=== PATIENT | male | born 1935 | race Caucasian/White ===

== ENCOUNTER 2024-02-14 18:52 | Inpatient (IN) | payer MEDICARE, SELFPAY ==
[2024-02-12] VITALS (7 sets, daily range): BP systolic 119–154; BP diastolic 59–83; PULSE 63–70; BMI 24.6
[2024-02-12 14:23] LABS: Glucose - Point of Care 154 mg/dl (70-99)
[2024-02-12 15:51] LABS: % Basophils 0.7 % (0-2); % Eosinophils 1.7 % (0-6); % Immature Granulocytes 0.2 % (0-0.5); % Lymphocytes 17.9 % (20.5-51.1); % Monocytes 6.9 % (1.7-9.3); % Neutrophils 72.6 % (42.2-75.2); Absolute Eosinophils 0.1 10^3/uL (0-0.7); Absolute Monocytes 0.4 10^3/uL (0.1-0.6); Absolute Neutrophils 4.2 10^3/uL (1.4-6.5); Hematocrit 37.2 % (39.0-52.0); Hemoglobin 11.9 g/dL (13.0-18.0); Mean Corpuscular Hgb 31.1 pg (27.0-31.0); Mean Corpuscular Volume 97.1 fL (80.0-94.0); Mean Platelet Volume 10.2 fL (7.4-10.4); Nucleated Red Blood Cells % 0 % (-); Platelet Count 138 10^3/uL (130-400); Red Blood Cell Count 3.83 10^6/uL (4.70-6.10); Red Cell Dist. Width 13.2 % (11.5-14.5); White Blood Cell Count 5.8 10^3/uL (4.8-10.8)
[2024-02-12 16:00] LABS: PT 18.2 Sec (11.4-14.6)
[2024-02-12 16:01] LABS: APTT 33.7 Sec (23.4-35.0)
[2024-02-12 16:03] LABS: ALT (SGPT) 12 U/L (0-50); AST (SGOT) 23 U/L (17-59); Albumin 4.4 g/dl (3.5-5.0); Alkaline Phosphatase 57 U/L (38-126); Blood Urea Nitrogen 25 mg/dl (9-20); Calcium 10.3 mg/dl (8.4-10.2); Carbon Dioxide 27 mmol/L (22-30); Chloride 102 mmol/L (98-107); Glucose 123 mg/dl (70-99); Potassium 5.1 mmol/L (3.5-5.1); Sodium 135 mmol/L (135-145); Total Bilirubin 0.5 mg/dl (0.2-1.3); eGFR 35.54
--- NOTE | 2024-02-12 16:33 | ED.CVA ---
History of Present Illness
General
Chief Complaint: CVA/TIA Symptoms
Source: patient and family (daughter)
Exam Limitations: none
Time Seen by Provider: 02/12/24 16:04
Nursing documentation reviewed up to this point in time: agreed with
Onset of Stroke Symptoms
Onset of symptoms known: No
Time pt last seen normal is known: No
Travel History
Have you had any contact with someone who has COVID-19?: No
Do you have any symptoms of coronavirus? Fever > 100 degrees, chills, cough, shortness of breath, sore throat, loss of taste or smell, muscle aches, or headache?: No
History of Present Illness
History of Present Illness:
The patient is an 89-year-old man brought in by his daughter, with whom he lives with, for generalized weakness and inability to walk. His daughter reports that he has decompensated over the last 2 to 3 days. She denies fever. She reports that he
does not have slurred speech, however, his voice seems much more quiet than usual. She reports he is generally up walking around and conversational. Patient has no complaints and is a poor historian. She denies any recent falls. She denies
vomiting and diarrhea. Daughter also also reports confusion over the last few days, saying things that do not make sense
Past History
Past History
ED Past Medical History: Arrthythmia (Afib), CAD, Hypercholesterolemia, NIDDM, Psychiatric and Other (glaucoma, bipolar)
ED Past Surgical History: Cardiac (stenting)
Social History
Tobacco: Non-smoker
Alcohol: None
Drug: None
Personal:
Living: with family
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
Family History
Family History: Other (reviewed and non-contributory)
Review of Systems
Review of Systems
Allergies reviewed?: Yes
Other source history: family
All Other Systems: ROS reviewed and negative except as documented in HPI and ROS
Constitutional: Reports fatigue
EENT: Reports no symptoms
Respiratory: Reports no symptoms
Cardiac: Reports no symptoms
ABD/GI: Reports anorexia
: Reports no symptoms
Musculoskeletal: Reports no symptoms
Skin: Reports no symptoms
Neurological: Reports no symptoms
Endocrine: Reports no symptoms
Hematologic/Lymphatic: Reports no symptoms
Psychiatric: Reports no symptoms
Phy Exam
Physical Exam
Physical Exam:
Physical Exam
General: No acute distress. Patient appears tired and less interactive
Neck: supple. no meningeal signs. normal psoterior pharynx
Heart: s1/s2 regular rate and rhythm, no murmur. equal radial pulses.
Lungs: no acute respiratory distress. clear bilaterally
Abdomen: normal bowel sounds. not tender. no CVAT
Neuro: alert and orientedx2. no focal neurological deficits, flat affect
Skin: no rash
Psychiatric: well kept. interactive and cooperative
Extremities: no edema. no calf tenderness. negative homans. good distal pulses
Course
Orders/Labs/Results
Orders:
Orders
02/12/24 14:27
Electrocardiogram (*1) Urgent
Reason for Study: Other
Other Reason for Exam: Possible Stroke
02/12/24 14:28
CT Head W/o Iv Contrast Urgent
Comment:
Reason For Exam: speech disturbance
EKG- Treatment ONCE
02/12/24 15:42
Complete Blood Count/With Diff Urgent
Comprehensive Metabolic Panel Urgent
PTT Urgent
Prothrombin Time Urgent
02/12/24 17:02
CR Chest - 2 Views Urgent
Comment:
Reason For Exam: weakness
02/12/24 17:11
Alcohol Urgent
Ammonia Urgent
COVID-19 Antigen Urgent
Source: Nasal Swab
Troponin I Urgent
Influenza A+B Rapid Molecular Urgent
LANA Source: Nasal Swab
Specimen Description:
02/12/24 18:35
Urinalysis Reflex To Culture Urgent
Date Specimen was Collected: 02/12/24
Time Specimen was Collected: 18:33
0.9% Sodium Chloride 1000 ml [Nss] 1,000 ml IV BOLUS
Abnormal Lab Results
02/12/24 02/12/24 02/12/24
14:21 15:42 17:11
RBC 3.83 L 10^6/uL
(4.70-6.10)
Hgb 11.9 L g/dL
(13.0-18.0)
Hct 37.2 L %
(39.0-52.0)
MCV 97.1 H fL
(80.0-94.0)
MCH 31.1 H pg
(27.0-31.0)
MCHC 32.0 L g/dL
(33.0-37.0)
Absolute Lymphs (auto) 1.0 L 10^3/uL
(1.2-3.4)
Lymphocytes % 17.9 L %
(20.5-51.1)
PT 18.2 H Sec
(11.4-14.6)
BUN 25 H mg/dl
(9-20)
Creatinine 1.8 H mg/dL
(0.7-1.3)
Glucose 123 H mg/dl
(70-99)
Calcium 10.3 H mg/dl
(8.4-10.2)
Ammonia < 9 L umol/L
(9-30)
POC Glucose 154 H mg/dl
(70-99)
02/12/24 15:42
02/12/24 15:42
Vital Signs
Initial and Last Documented VS:
Initial Vital Signs
Temp Pulse Resp BP Pulse Ox
98.4 F 70 16 119/67 98
04/09/24 14:23 02/12/24 14:23 02/12/24 14:23 02/12/24 14:23 02/12/24 14:23
Last Documented Vital Signs
Temp Pulse Resp BP Pulse Ox
98.4 F 61 12 129/59 96
02/12/24 14:23 02/12/24 19:00 02/12/24 19:00 02/12/24 19:00 02/12/24 19:02
MDM/Problems Addressed
Differential Diagnosis Includes:
Acute UTI, intracranial hemorrhage, hyponatremia, acute dehydration
MDM/Problems Addressed:
Patient presents with acute generalized fatigue, weakness and inability to walk
*Radiology
Radiology exam reviewed: preliminary read by ED provider (Chest x-ray reviewed by me. No acute disease) and radiology read reviewed
*Pulse Oximetry
Patient hypoxic: no
*Circulation Sales Representative Interpretation
Rate: normal
Interpretation: normal
Rhythm: sinus
*Critical Care Note
Total Time (30-74mins, 75-104mins- exclusive of procedures): Not Applicable
Data Reviewed
Review of Other/Old Records Reveals: Discharge Summary (Discharge summary reviewed from 05/2022 when patient was admitted for ambulatory dysfunction and later found to be COVID-positive)
Source: patient and family
Patient Management
Discussion with other providers: Hospitalist
ED Attending Note
-
Portions of this chart may have been created with voice recognition software.� Occasional wrong word or��sound alike� substitutions may have occurred due to the inherent limitations of voice recognition software.
Discharge Plan
Departure
Patient Disposition: Admit
Date of Disposition: 02/12/24
Time of Disposition: 19:02
Presentation/result/management discussed w/ accepting MD/DO: Hospitalist
Patient with high blood pressure during this ER visit?: No
Condition: Good
Covid-19: Negative COVID-19
Discharge Problem:
Ambulatory dysfunction, Weakness
Prescriptions:
No Action
aspirin 81 MG tablet,delayed release (DR/EC)
81 mg PO DAILY
multivitamin with folic acid [Tab-A-Mariaelena] 1 TABLET tablet
1 tab PO MOWEFR
divalproex 500 MG tablet extended release 24 hr
500 mg PO BID
amiodarone [Pacerone] 200 MG tablet
200 mg PO DAILY
Eliquis 2.5 MG tablet
2.5 mg PO BID Qty: 30 0RF
sennosides [senna] 1 TABLET tablet
1 tab PO HS PRN (Reason: Constipation)
polyethylene glycol 3350 17 GRAMS powder in packet
17 grams PO DAILY
levothyroxine 25 mcg Tablet
25 mcg PO DAILY AT 0700
lithium carbonate 300 mg Tablet
300 mg PO HS
cholecalciferol (vitamin D3) 25 mcg (1,000 unit) Capsule
25 mcg PO DAILY
solifenacin 10 mg Tablet
10 mg PO DAILY
rosuvastatin 10 mg Tablet
10 mg PO QPM Qty: 1 0RF
docusate sodium 100 MG capsule
100 mg PO BID PRN (Reason: constipation)
Refresh Classic (PF) 10 DROPS dropperette
1 drops BOTH EYES QIDPRN PRN (Reason: dry eyes )
Interventions
Interventions:
*Risk Screen - Suicide Last Done: 02/12/24 14:23
*General Assessment Last Done: 02/12/24 14:23
*Neglect/Abuse Screening Last Done: 02/12/24 14:23
ED- Fall Risk Assessment Last Done: 02/12/24 14:23
*ED COVID-19 Vaccine History Last Done: 02/12/24 17:22
ED- Pulmonary Assessment Last Done: 02/12/24 19:02
ED- Neurological Assessment Last Done: 02/12/24 14:23
ED- Cardiac Assessment Last Done: 02/12/24 19:02
Discharge Date and Time
Print Language: CAP[place]
[2024-02-12 17:38] LABS: Ammonia < 9 umol/L (9-30)
[2024-02-12 17:41] LABS: COVID-19 Antigen Negative (Negative)
[2024-02-12 17:55] LABS: Alcohol None Detected
[2024-02-12 18:44] LABS: Urine Albumin Negative (Neg - Trace); Urine Bilirubin Negative (Negative); Urine Character Slightly Cloudy (Clear); Urine Color Yellow; Urine Glucose Negative (Negative); Urine Ketone Negative (Negative); Urine Leukocyte Negative (Negative); Urine Nitrite Negative (Negative); Urine Occult Blood Negative (Negative); Urine Urobilinogen Negative (Neg - 1+)
[2024-02-12] MEDS: NSS 1000 IV ×2 (18:52→22:52)
--- NOTE | 2024-02-12 19:43 | HPS.HSE ---
Family Physician
-
Family Physician: Hermila Solis
Chief Complaint
-
Weakness
History of Present Illness
Patient is an 89y M with PMH significant for ASCVD, bipolar disorder and CKD who presents to ED for evaluation of weakness and confusion. History obtained from patient and his daughter at the bedside. Daughter notes that patient has seemed
weaker and more confused for the past 3-4 days or so. She has noted that his voice seems lower / softer, he has had increased ataxia / difficulty walking despite regular use of a walker and he has seemed more confused / disoriented. There have
been no specific / focal complaints or concerns. No noted cough, chest pain, N/V/D, urinary complaints, etc.
No recent medication changes or adjustments.
No known sick contacts.
Medical History
Past Medical History
Past Medical History: Reports Other
Additional Past Medical History:
ASCVD
Hypertension
Paroxysmal Atrial Fibrillation
DM-II
CKD III
Bipolar Disorder
Sensorineural Hearing Loss
Past Surgical History: Reports Other
Additional Past Surgical History:
PTCA with Stent
PPM / AICD Placement
T&A
Social History
Tobacco: Non-smoker
Alcohol: None
Drug: None
Living: With Family (Daughter)
Family History
Family History: Not pertinent
Allergies / Home Medications
Allergies reflects when Allergies were last updated in [facility].
Home Medications with original date entered in [facility]
Allergy/Medication List:
Allergies
Allergy/AdvReac Type Severity Reaction Status Date / Time
No Known Allergies Allergy Verified 02/02/23 15:27
Home Medications
aspirin 81 mg tablet,delayed release 81 mg PO DAILY Blood clot prevention/tx 12/16/14
multivitamin with folic acid 400 mcg tablet (Tab-A-Mariaelena) 1 tab PO MOWEFR Supplement 12/16/14
amiodarone 200 mg tablet (Pacerone) 200 mg PO DAILY Arrhythmia 02/22/16
divalproex 500 mg tablet,extended release 24 hr 500 mg PO BID Mental health 02/22/16
apixaban 2.5 mg tablet (Eliquis) 2.5 mg PO BID ##30 02/25/16
polyethylene glycol 3350 17 gram oral powder packet 17 grams PO DAILY Constipation 02/28/22
sennosides 8.6 mg tablet (senna) 1 tab PO HS PRN Constipation 02/28/22
cholecalciferol (vitamin D3) 25 mcg (1,000 unit) capsule 25 mcg PO DAILY Supplement 05/09/22
levothyroxine 25 mcg tablet 25 mcg PO DAILY AT 0700 Thyroid 05/09/22
lithium carbonate 300 mg tablet 300 mg PO HS mental health 05/09/22
solifenacin 10 mg tablet 10 mg PO DAILY Urinary issue 05/09/22
rosuvastatin 10 mg tablet 10 mg PO QPM hyperlipidemia #1 tab 05/15/22
docusate sodium 100 mg capsule 100 mg PO BID PRN constipation 02/12/24
polyvinyl alcohol-povidone (PF) 1.4 %-0.6 % eye drops in a dropperette (Refresh Classic (PF)) 1 drops BOTH EYES QIDPRN PRN dry eyes 02/12/24
Review of Systems
-
History Source: Patient and Family
A 12 point ROS was completed and negative except as noted: Yes
Constitutional: Reports Fatigue; Denies Fever or Chills
EENT: Denies Sore Throat
Respiratory: Denies Cough
Cardiac: Denies Chest Pain or Syncope
Abdomen/GI: Denies Abdominal Pain, Nausea, Vomiting, Diarrhea, Bloody Stools or Black Stools
: Denies Dysuria, Frequency or Flank Pain
Musculoskeletal: Reports Edema; Denies Joint Pain
Neurological: Reports Weakness and Other (Gait dysfunction); Denies Dizzy or Headache
Psych: Reports Dementia; Denies Depression or Anxiety
Physical Exam
Vital Signs
Vital Signs
Temp Pulse Resp BP Pulse Ox
98.4 F 68 13 129/59 100
02/12/24 14:23 02/12/24 19:30 02/12/24 19:30 02/12/24 19:00 02/12/24 19:30
Physical Exam
General: Other (89y M in no acute distress. Very [place].)
HEENT: Other (Dry MM. Neck is supple.)
Respiratory: Clear; No Wheezes, Rales or Rhonchi
Cardiac: S1/S2 and Regular Rhythm; No Murmur
GI: Soft, Non Tender, Non Distended and Normal Bowel Sounds
Musculoskeletal: No Clubbing, No Cyanosis and Other (2+ pitting edema b/l LEs.)
Neuro: Awake, Alert and Nonfocal/grossly intact; No Oriented
Laboratory Results
-
02/12/24 15:42
02/12/24 15:42
Laboratory Results
PT 18.2 Sec (11.4-14.6) H 02/12/24 15:42
INR 1.50 02/12/24 15:42
APTT 33.7 Sec (23.4-35.0) 02/12/24 15:42
Total Bilirubin 0.5 mg/dl (0.2-1.3) 02/12/24 15:42
AST 23 U/L (17-59) 02/12/24 15:42
ALT 12 U/L (0-50) 02/12/24 15:42
Alkaline Phosphatase 57 U/L (38-126) 02/12/24 15:42
Troponin I 0.020 ng/ml 02/12/24 17:11
Impression/Plan
-
A/P: Patient is an 89y M with PMH significant for ASCVD, CKD and DM-II who presents to ED for evaluation of recent increase in weakness, confusion, etc.
Weakness / Gait Dysfunction
Confusion
- Observe overnight for further evaluation and treatment.
- Thus far, no clear acute etiology for patient's apparent clinical change.
- Labs essentially unremarkable - perhaps mild volume contraction.
- No evidence of pneumonia, UTI, etc.
- Patient is on potentially toxic medications in VPA and lithium and will check levels of both.
- PT / OT evaluations.
- Follow for any new / focal complaints or concerns.
- If no acute / reversible etiology can be identified, possible that this represents general functional decline in this 89y M with multiple medical issues.
ASCVD
- Stable. No chest pain, dyspnea, etc.
- Continue current CV med regimen.
- Monitor on tele for any arrhythmia.
- Check Echo given LE edema noted on exam.
Paroxysmal Atrial Fibrillation
- Stable. Continue current meds including amio, Eliquis, etc.
CKD III
- Stable. SCr ranges from 1.5 to 1.9 over the past several labs.
- Currently 1.8.
- Follow for any changes.
DM-II
- Apparently diet controlled as patient is on no current DM medications.
- Follow glucose and cover with SSI if needed.
- Update A1C.
DVT Prophylaxis: SCDs
Code Status: Full
[2024-02-12 21:54] LABS: Lithium 1.9 mmol/L (0.6-1.2)
[2024-02-12 22:00] LABS: Depakane < 10.0 ug/ml (50.0-120.0)
[2024-02-12 22:04] LABS: Glucose - Point of Care 113 mg/dl (70-99)
[2024-02-12 22:29] LABS: TSH Reflex To Free T4 2.38 uIU/ml (0.47-4.68)
[2024-02-12] MEDS: DEPAKOTE ER (24 HR RELEASE) 500 MG PO (23:01)
[2024-02-12] MEDS: ELIQUIS 2.5 MG PO (23:01)
[2024-02-13] VITALS (8 sets, daily range): BP systolic 127–168; BP diastolic 63–87; PULSE 62; O2SAT 99; BMI 25.2
--- NOTE | 2024-02-13 02:55 | PTCARENOTE ---
Addendum entered by Rasheed Diop RN 02/13/24 05:49:
SANDY Moreno made aware of pt valproic acid blood level.No new orders at this time.Plan of care continued.
Original Note:
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 Pt daughter at bedside. Pt IV fluids started as ordered. [facility] with
critical of lithium level-1.9, pt PO medication on hold.Neurochecks continued as ordered. SCD's placed on pt.Plan of care continued.
[2024-02-13] MEDS: SYNTHROID 25 MCG PO (05:20)
[2024-02-13 07:29] LABS: Glucose - Point of Care 125 mg/dl (70-99)
[2024-02-13 08:18] LABS: Hematocrit 34.9 % (39.0-52.0); Hemoglobin 11.4 g/dL (13.0-18.0); Mean Corp Hgb Conc. 32.7 g/dL (33.0-37.0); Mean Corpuscular Hgb 31.6 pg (27.0-31.0); Mean Corpuscular Volume 96.7 fL (80.0-94.0); Mean Platelet Volume 10.4 fL (7.4-10.4); Platelet Count 117 10^3/uL (130-400); Red Blood Cell Count 3.61 10^6/uL (4.70-6.10); Red Cell Dist. Width 13.2 % (11.5-14.5); White Blood Cell Count 5.5 10^3/uL (4.8-10.8)
[2024-02-13 08:45] LABS: Blood Urea Nitrogen 21 mg/dl (9-20); Calcium 9.7 mg/dl (8.4-10.2); Carbon Dioxide 25 mmol/L (22-30); Chloride 107 mmol/L (98-107); Estimated Creatinine Clearance 29 ml/min; Glucose 117 mg/dl (70-99); Potassium 4.4 mmol/L (3.5-5.1); Sodium 138 mmol/L (135-145); eGFR 38.06
[2024-02-13] MEDS: NOVOLOG FLEXPEN-LOW RESISTANCE SC (08:55)
[2024-02-13 09:40] LABS: Glycohemoglobin (HgbA1c) 7.5 % (4.0-5.6)
[2024-02-13] MEDS: ELIQUIS 2.5 MG PO ×2 (10:10→20:13)
[2024-02-13] MEDS: VESICARE 10 MG PO (10:10)
[2024-02-13] MEDS: PACERONE 200 MG PO (10:10)
[2024-02-13] MEDS: VITAMIN D3 (cholecalciferol) 25 MCG PO (10:10)
[2024-02-13] MEDS: ASPIR LOW (ENTERIC COATED) 81 MG PO (10:11)
[2024-02-13] MEDS: DEPAKOTE ER (24 HR RELEASE) 500 MG PO (10:12)
[2024-02-13 12:34] LABS: Glucose - Point of Care 202 mg/dl (70-99)
[2024-02-13] MEDS: NOVOLOG FLEXPEN-LOW RESISTANCE 2 UNITS SC (13:42)
--- NOTE | 2024-02-13 14:40 | W.PN.HOSP.TC ---
Addendum entered and electronically signed by Richard Quiroga MD 02/13/24 15:42:
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 Will cancel MRI order and notify neurology.
Original Note:
Today's Communication/Plan
-
Appreciate neurology and psychiatry
Spoke with both of patient's daughters -- ordered MRI brain to check for stroke
Assessment / Plan
Assessment / Plan
Physical Exam
General: Not in acute distress, hard of hearing
HEENT: Normocephalic
Respiratory: Clear to Auscultation Bilaterally
Cardiac: S1/S2 and Regular Rhythm
GI: Soft, Non Tender, Non Distended and Normal Bowel Sounds
Musculoskeletal: No Cyanosis and Other (2+ pitting edema b/l LEs.)
Neuro: Awake, Alert and Nonfocal/grossly intact. Cranial Nerves 2 through 12 grossly intact. Finger to nose intact (but tremors present). Strength and sensation grossly intact bilaterally.
Assessment/Plan
Patient is an 89y M with PMH significant for ASCVD, CKD and DM-II who presents to ED for evaluation of recent increase in weakness, confusion, etc.
Weakness / Gait Dysfunction
Confusion
- Spoke with patient's both daughters on February 13, 2024 -- they noted that at baseline, patient is very oriented and functional
- Thus far, no clear acute etiology for patient's apparent clinical change.
- Labs essentially unremarkable - perhaps mild volume contraction.
- No evidence of pneumonia, UTI
- Patient is on potentially toxic medications - VPA and lithium - VPA levels low while [place] high
- Consulted Neurology, recommendations appreciated
- Consulted Psychiatry, recommendations appreciated
- PT / OT evaluations.
- Follow for any new / focal complaints or concerns.
- Check Brain MRI to rule out stroke
ASCVD
- Stable. No chest pain, dyspnea, etc.
- Continue current CV med regimen.
- Monitor on tele for any arrhythmia.
- Echo pending (was ordered given LE edema noted on exam)
Paroxysmal Atrial Fibrillation
- Stable. Continue current meds including amio, Eliquis, etc.
CKD III
- Stable. SCr ranges from 1.5 to 1.9 over the past several labs.
- Currently 1.8.
- Follow for any changes.
DM-II
- Apparently diet controlled as patient is on no current DM medications.
- Follow glucose and cover with SSI if needed.
- Update A1C.
DVT Prophylaxis: SCDs
Code Status: Full
Anticipated Discharge: 24 - 48 hours
Subjective/Interval History
-
Date of Service: February 13, 2024
Patient was seen and examined. He reported no new symptoms or complaints.
Objective Data
-
Labs:
Laboratory Results
02/13/24
07:38
WBC 5.5
Hgb 11.4 L
Hct 34.9 L
Plt Count 117 L
Sodium 138
Potassium 4.4
Chloride 107
Carbon Dioxide 25
BUN 21 H
Creatinine 1.7 H
Glucose 117 H
Calcium 9.7
Vital Signs:
Vital Signs
Temp Pulse Resp BP Pulse Ox
98.2 F 66 24 146/77 96
02/13/24 11:00 02/13/24 11:00 02/13/24 11:00 02/13/24 11:00 02/13/24 11:00
I&O
02/12/24 02/13/24 02/14/24
06:59 06:59 06:59
Intake Total 980 / 980
Output Total 800 / 800
Balance 180 / 180
[2024-02-13] MEDS: NSS 1000 IV (14:52)
--- NOTE | 2024-02-13 16:41 | CON.MD ---
Addendum entered and electronically signed by Kilo Pagan MD 02/13/24 17:03:
spoke to patient's d who says that he has not had psych issues in many years. she remembers him as having had some manic episodes but not depressed and that was over twenty years ago. she reports that he has followed up for renal issues and his
lithium level has been measured in the past. she reports her father was very confused but after discussion we concluded that based on my observations while talking to him that he is improving re confusion. explained my recommendations to her.
Addendum entered and electronically signed by Kilo Pagan MD 02/13/24 16:57:
note there is mention in the record of chronic kidney disease and current creatinine is 1.7 it was not clear to me whether the increase in creatinine was because of the lithium toxicity or caused it. if he has ongoing ckd that could account for
the increase in lithium level and i would not recommend it being restarted. there is also mention in his record of hx cva and diverticulitis.
Original Note:
Consultation - Medical
-
patient seen chart reviewed. discussed with nursing. the patient is an 89 year old male admitted for weakness worsening ability to ambulate and has been decompensating for the past two to three days. he has a hx of bipolar disorder and has been
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 he attends meetings frequently and adds he gave up driving but is able to get rides to meetings. he lives with his d who lost her h five years ago in a sudden mva
on [employer] [place]. d then came to live w him from [facility] and helped nurse his in her final days (she four years ago) and now she helps him out. i asked him if he lives in her house and he corrected me 'she lives in my house' but added that it
is a good arrangment that works for both of them. he has taken depakote 500 mg bid and lithium 300 q day for many years. his pcp manages it and does blood levels he does not believe he took too much lithium on a given day. he denies things which
could increase lithium level as dehydration n/v use of nsaids etc. his blood level was 1.9 which can account for the sx which prompted admit. also odd is that his depakote level was measured as less than ten although he says he takes depakote
reliably. i did check his other meds for interactions with lithium but could not find anything which could account for the increase. he reports good mood generally . sleep and appetite are good ('my daughter is a good cook'). nothing to suggest
psychosis attending AA meetings is his hobby!
past psych hx in the very distant past more than 25 years ago was hospitalized psychiatrically. dr carrizales was his psych but 'he told me he could no longer service me bc my insurance was not paying' pcp took over his care
medical hx patient has defibrillator implanted. he has hx v tach thoracic aortic aneurysm ascvd paf niddm ckd constipation htn urge incontincence abn ecg w nl qtc glaucoma (caused him to stop driving) lithium level 1.9 cat scan without
acute abnormalities
fh non contributory
substance abuse see above
social resides w one of his three d who all live locally he has 11 grand kids and four great grands and son . after a long illness. son dropped at age 45 at work from sudden cardiac . patient worked for [employer] for thirty
years before retiring.
mse alert ox3 pleasant and cooperative speech and thought process normal. patient with some mild cognitive impairment had to think a lot at times to come up with answers but overall did well in the interview at communicating his life and asking ?
no psychosis mood is good affect appropriate no si aver intell insight judgment ok
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
plan for now hold lithium and depakote. i doubt i would recommend restarting lithium given sudden toxicity and the fact that as of yet it is unexplicable would reassess in a day or so. monitor electrolytes. neuro involved cannot do mri bc
defibrillator in place. they recommend repeat cat scan in am and eeg although lithium toxicity most likely dx.
[2024-02-13 17:13] LABS: Glucose - Point of Care 151 mg/dl (70-99)
[2024-02-13] MEDS: NOVOLOG FLEXPEN-LOW RESISTANCE 1 UNITS SC (17:15)
[2024-02-13] MEDS: CRESTOR 10 MG PO (17:15)
[2024-02-13 21:06] LABS: Glucose - Point of Care 118 mg/dl (70-99)
[2024-02-14] VITALS (9 sets, daily range): BP systolic 116–169; BP diastolic 37–88; PULSE 66–77; O2SAT 99; BMI 24.5
[2024-02-14] MEDS: SYNTHROID 25 MCG PO (05:39)
[2024-02-14 07:22] LABS: Glucose - Point of Care 120 mg/dl (70-99)
[2024-02-14] MEDS: NOVOLOG FLEXPEN-LOW RESISTANCE SC (07:42)
--- NOTE | 2024-02-14 07:45 | CON.NEURO4 ---
Consultation - Neurology 4
-
CONSULTING PHYSICIAN: Leandro Wills
REFERRING PHYSICIAN: Hospitalist
DICTATED BY: Leandro Wills
DATE/TIME OF REQUEST: 02/14/24
DATE/TIME OF CONSULTATION: 02/14/24
Reason for Consultation: Weakness, gait problems, confusion
History of Present Illness:
Patient is an 89-year-old man with a past med history of coronary artery disease, paroxysmal atrial fibrillation, disorder, former alcohol abuse now in remission who presented to hospital with generalized weakness and confusion over about the past
week before admission. History obtained from the patient as well as medical chart. Patient can recollect he has had difficulty with his walking with increased sense of imbalance and he does use a walker normally with ambulation. Has not felt any
overt confusion and has not noticed any tremor, though notes that his family has been concerned about his mental status with some confusion lately. He denies any nausea or vomiting headache double vision slurred speech or dysphagia. No unilateral
weakness or blindness or unusual headache or head or neck trauma recently. He can recall being on lithium as well as valproic acid for at least the past several years. There have not been any changes in these doses recently he has been compliant
with the medications does not feel that he has been taking them and any extra doses or missing doses and does have his levels checked usually is followed by his primary care doctor he does not see a psychiatrist regularly.
Past Medical History: Paroxysmal atrial fibrillation, coronary artery disease, CKD, DMII, history bipolar disorder in remission
Surgical History: Coronary stent, PPM/AICD, tonsillectomy/adenoidectomy
Family History: Non-contributory
Social History: Retired, lives with his daughter, former heavy alcohol use now sober about 25 years and is active in AA
Allergies: No known drug allergies
Home Medications:
Review of Symptoms:
Patient denies any fever, headache, chest pain, shortness of breath, GI or symptoms.
Physical Exam:
Elderly man appears his stated age no signs of head or neck trauma well-nourished no signs of distress, oropharynx is dry eyes are clear, neck supple full range of motion with no neck masses, heart rate regular, breathing unlabored abdomen soft
nontender no lower extremity edema rash or joint deformity seen
Neurologic Examination:
Patient is wide-awake and alert pleasant and conversational, oriented to hospital month year and president, some poor recall for recent events and some mildly impaired short-term memory, fairly good historian with description of previous medical
care and past medical history, normal thought process, no hallucinations, no aphasia praxis is normal no neglect, fair insight. On cranial nerve assessment, pupils are 3 mm bilateral, round and reactive to light and accommodation. Visual giron are
full. Extraocular movements are intact. Facial sensations are intact and bilaterally symmetrical, there is no facial asymmetry. Hearing is intact bilaterally to normal conversation volume. Tongue palate and uvula are midline. Sternocleidomastoid
strengths are full bilaterally. No tremor or parkinsonism seen on this exam. Motor strengths are 5/5 bilateral upper and lower extremities on medical research [place] scale. There is no drift or involuntary movement noted. Deep tendon reflexes are
2+ bilateral upper and lower extremities and Babinski is absent bilaterally. Coordination is intact by finger to nose bilaterally.
Neuro Imaging: CT head with global atrophy, basal ganglia calcifications bilaterally, no acute or chronic infarcts, no hemorrhage, no masses, no hydrocephalus or ventriculomegaly, white matter ischemic changes seen bilaterally are moderate
Impressions
1. Very likely the combination of lithium and valproic acid on top of CKD in an elderly patient or causing majority of the patient's problems with balance as well as confusion. There are no focal findings that are suspicious for an acute
ischemic stroke. There have not been any episodes that arouse high suspicion for seizure activity. Patient does have a history of distant alcohol use which can also produce long-term problems usually peripheral neuropathy or cerebellar or global
brain atrophy and these can also cause some balance problems as well as cognitive impairment.
2. Paroxysmal atrial fibrillation on anticoagulation
3. CKD
4. Coronary artery disease status post stent
Recommendations:
1. Repeated CT head with no concerning acute finding, unable to obtain brain MRI with pacemaker/AICD not compatible
2. Obtain routine EEG, no indications for anti seizure medication at this time (Valproic acid was for mood stabilization not seizure)
3. Agree with holding both valproic acid and lithium as the harms associated with these medications very likely outweigh the benefits. Would most likely benefit from outpatient psychiatric evaluation non-urgently as well as continuing to follow
his mood, appears bipolar has been in remission for years.
4. Check Vitamin B1, B12
5. Follow renal function
6. Minimize sedating medications
7. Continue anticoagulation with atrial fibrillation history
Call with questions and concerns
Discussed patient care with: Patient
--- NOTE | 2024-02-14 09:46 | EEG.RPT ---
Electroencephalogram Report
Recording
Date of EE02/14/24
Type of EEG: Routine
Length of EEG recordin minutes
Done with Video Recording: Yes
Patient Status: Inpatient
Recording Conditions: Awake and Drowsy
Hyperventilation Performed: No
Photic Stimulation Performed: Yes
Report
LESS THAN 1 HOUR EEG REPORT
LESS THAN 1 HOUR EEG INTERPRETATION:
Mildly abnormal study for age based on generalized slowing demonstrated bihemispherically equally
CLINICAL CORRELATION:
Although normative values not been established for a person of this advanced age the patient�s symmetry of the background suggests that this study was suggestive of mild bihemispheric cortical dysfunction. No epileptiform features were demonstrated.
If concerns remain regarding epilepsy, prolonged monitoring may be of assistance.
Clinical correlation is advised.
METHODS:
A 21-channel digital electroencephalogram (EEG) was performed in the [facility]. The 10/20 international system of electrode placement was used with ECG and lateral/vertical eye movements recorded. The M-DISC quantitative
system was utilized.
IMPRESSION(S):
Quality of study
Fair
Background
Expected amplitude
Anterior-posterior voltage gradient differentiation: Fair
Theta frequency maximal background demonstrated
Sleep
Drowsiness present
Hyperventilation
Not performed
Photic Stimulation
Failed to activate the record
ECG
Normal rhythm
Abnormal Activity
None
[2024-02-14] MEDS: VITAMIN D3 (cholecalciferol) 25 MCG PO (10:18)
[2024-02-14] MEDS: PACERONE 200 MG PO (10:18)
[2024-02-14] MEDS: VESICARE 10 MG PO (10:18)
[2024-02-14] MEDS: ASPIR LOW (ENTERIC COATED) 81 MG PO (10:18)
[2024-02-14] MEDS: ELIQUIS 2.5 MG PO ×2 (10:18→20:11)
[2024-02-14 11:13] LABS: Glucose - Point of Care 192 mg/dl (70-99)
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
--- NOTE | 2024-02-14 12:40 | W.PN.HOSP.TC ---
Today's Communication/Plan
-
Mustang likely reason for confusion
Labwork as above
PT/OT
Discharge Planning
Assessment / Plan
Assessment / Plan
Physical Exam
General: Not in acute distress, hard of hearing
HEENT: Normocephalic
Respiratory: Clear to Auscultation Bilaterally
Cardiac: S1/S2 and Regular Rhythm
GI: Soft, Non Tender, Non Distended and Normal Bowel Sounds
Musculoskeletal: No Cyanosis and Other (2+ pitting edema b/l LEs.)
Neuro: Awake, Alert. Not fully oriented. Cranial Nerves 2 through 12 grossly intact. Finger to nose intact (but tremors present). Strength and sensation grossly intact bilaterally.

ECHOCARDIOGRAM RESULTS PER FLEET ADMINISTRATIVE ASSISTANT'S REPORT:
CONCLUSIONS
Mild concentric left ventricular hypertrophy.
Normal left ventricular chamber size.
Normal left ventricular systolic function.
Normal regional wall motion.
Left ventricular ejection fraction is 55-60% by visual assessment.
Normal diastolic function.
Mild mitral regurgitation.
Mild aortic regurgitation.
Mild tricuspid regurgitation.
Estimated pulmonary artery pressure of 49 mmHg, assuming a right atrial
pressure of 3 mmHg.
Trivial to small pericardial effusion seen in the anterior space (1.5cm ) and
a smaller area along the left heart.
The IVC is of normal size and demonstrates normal respiratory variation.
Dilated aortic root.
COmpared to 2018 echocardiogram aortic root is of similar size

Assessment/Plan
Patient is an 89y M with PMH significant for ASCVD, CKD and DM-II who presents to ED for evaluation of recent increase in weakness, confusion, etc.
Weakness, Gait Dysfunction, and Confusion likely the combination of lithium and valproic acid on top of CKD in an elderly patient, possibly peripheral neuropathy from past alcohol use
- Spoke with patient's both daughters on February 13, 2024 -- they noted that at baseline, patient is very oriented and functional
- Mustang likely the reason for patient's symptoms
- No evidence of pneumonia, UTI
- Patient is on potentially toxic medications - VPA and lithium - VPA levels low while Mustang high
- Consulted Neurology, recommendations appreciated
- Consulted Psychiatry, recommendations appreciated: Valproic Acid and Mustang stopped
- PT / OT evaluations.
- Follow for any new / focal complaints or concerns.
- Brain MRI could not be done to incompatible pacemaker
- So repeated CT head with no concerning acute finding
- Routine EEG
- Check Vitamins B1 and B12
ASCVD
- Stable. No chest pain, dyspnea, etc.
- Continue current CV med regimen.
- Monitor on tele for any arrhythmia.
- Echo pending (was ordered given LE edema noted on exam)
Paroxysmal Atrial Fibrillation
- Stable. Continue current meds including amio, Eliquis, etc.
CKD III
- Stable. SCr ranges from 1.5 to 1.9 over the past several labs.
- Currently 1.7
- Follow for any changes.
DM-II
- Apparently diet controlled as patient is on no current DM medications.
- Follow glucose and cover with SSI if needed.
- Update A1C 7.5
DVT Prophylaxis: SCDs
Code Status: Full
Anticipated Discharge: 24 - 48 hours
Subjective/Interval History
-
Date of Service: February 14, 2024
Patient was seen and examined. He reported no new symptoms or complaints.
Objective Data
-
Labs:
Laboratory Results
02/14/24
11:46
BUN Pending
Creatinine Pending
Vital Signs:
Vital Signs
Temp Pulse Resp BP Pulse Ox
97.8 F 75 18 131/64 100
02/14/24 11:37 02/14/24 11:37 02/14/24 11:37 02/14/24 11:37 02/14/24 11:37
I&O
02/13/24 02/14/24 02/15/24
06:59 06:59 06:59
Intake Total 980 / 980 1770 / 1770
Output Total 800 / 800 2074
Balance 180 / 180 -305 / -305
[2024-02-14] MEDS: NOVOLOG FLEXPEN-LOW RESISTANCE 1 UNITS SC ×2 (13:07→18:19)
[2024-02-14 13:19] LABS: Blood Urea Nitrogen 19 mg/dl (9-20); Estimated Creatinine Clearance 31 ml/min; Lithium 1.2 mmol/L (0.6-1.2)
--- NOTE | 2024-02-14 14:50 | CM ---
Telephone Call to DaughterFrancia, to complete initial assessment; she was driving and asked that I call her tomorrow to complete initial assessment
Chart reviewed: patient lives with daughterFrancia
PT recommendation is SNF (if daughter cannot provide 24 hr assistance) vs Home PT
Will call patient's daughter tomorrow
[2024-02-14 16:38] LABS: Glucose - Point of Care 195 mg/dl (70-99)
[2024-02-14] MEDS: CRESTOR 10 MG PO (18:20)
[2024-02-14 21:30] LABS: Glucose - Point of Care 318 mg/dl (70-99)
[2024-02-14] MEDS: NOVOLOG FLEXPEN 5 UNITS SC (22:12)
[2024-02-15 01:16] VITALS: BMI 24.5
[2024-02-15 03:52] VITALS: BP 149/83
[2024-02-15] MEDS: SYNTHROID 25 MCG PO (05:59)
[2024-02-15 06:00] VITALS: BMI 24.2
[2024-02-15 07:58] LABS: ALT (SGPT) 11 U/L (0-50); AST (SGOT) 20 U/L (17-59); Albumin 3.7 g/dl (3.5-5.0); Alkaline Phosphatase 61 U/L (38-126); Blood Urea Nitrogen 18 mg/dl (9-20); Calcium 9.8 mg/dl (8.4-10.2); Carbon Dioxide 22 mmol/L (22-30); Chloride 108 mmol/L (98-107); Estimated Creatinine Clearance 33 ml/min; Glucose 118 mg/dl (70-99); Potassium 4.4 mmol/L (3.5-5.1); Sodium 138 mmol/L (135-145); Total Bilirubin 0.6 mg/dl (0.2-1.3); Total Protein 6.2 g/dl (6.3-8.2); eGFR 44.23
[2024-02-15 08:11] VITALS: BP 151/76
[2024-02-15 08:11] LABS: Hematocrit 35.8 % (39.0-52.0); Mean Corp Hgb Conc. 33.5 g/dL (33.0-37.0); Mean Corpuscular Hgb 31.4 pg (27.0-31.0); Mean Corpuscular Volume 93.7 fL (80.0-94.0); Mean Platelet Volume 10.3 fL (7.4-10.4); Platelet Count 138 10^3/uL (130-400); Red Blood Cell Count 3.82 10^6/uL (4.70-6.10); White Blood Cell Count 6.2 10^3/uL (4.8-10.8)
[2024-02-15 08:41] LABS: Glucose - Point of Care 138 mg/dl (70-99)
[2024-02-15] MEDS: NOVOLOG FLEXPEN-LOW RESISTANCE SC (08:45)
[2024-02-15] MEDS: PACERONE 200 MG PO (08:46)
[2024-02-15] MEDS: VESICARE 10 MG PO (08:46)
[2024-02-15] MEDS: VITAMIN D3 (cholecalciferol) 25 MCG PO (08:46)
[2024-02-15] MEDS: ELIQUIS 2.5 MG PO ×2 (08:46→20:03)
[2024-02-15] MEDS: ASPIR LOW (ENTERIC COATED) 81 MG PO (08:46)
--- NOTE | 2024-02-15 09:31 | CM ---
Addendum entered by Kimberly Landis 02/15/24 15:34:
[facility] and updated on the chart
Explained to patient's daughter, Francia, that father has a [facility] Medicare Advantage
Spoke via phone with Jeanine Nunez @ [facility] and provided updated insurance information
CM will need to follow up on Sunday to find out if [facility] is out of [facility] network
Original Note:
Spoke with patient's daughter, Francia Whitney, this morning via phone; initial assessment completed; and discussed disharge planning
Pharmacy verified: [facility], [facility]
Daughter reported that patient lives with her in a multilevel home; 3 steps to enter; father has bedroom and bathroom on the 1st floor; bath has a walk-in shower with grab bar and bench
PLOF: daughter reported that prior to present illness, patient was independent with ADLs, ambulated with a walker; and was able to manage pre-packaged medications
SNF/Rehab/Home Health utilization history: stay @ [facility] 2 years ago followed by home health services from [facility]
Transportation from hospital to be determined
Explained to daughter that PT/OT recommend SNF at discharge; daughter is agreeable with plan; facility preference is [facility]
Referral submitted to [facility] via [facility]
Plan: discharge to SNF when medically stable and bed is available
[2024-02-15 11:38] VITALS: BP 133/69; BP 138/68; PULSE 73
[2024-02-15 11:57] LABS: Glucose - Point of Care 277 mg/dl (70-99)
[2024-02-15] MEDS: NOVOLOG FLEXPEN-LOW RESISTANCE 3 UNITS SC (12:12)
--- NOTE | 2024-02-15 13:13 | W.PN.UPDATE ---
Update Note
Progress Note Update
patient seen chart reviewed discussed w nursing and with dr joy. daughter at bedside. the patient continues to be very cooperative and pleasant however the longer he stays here the more regressed he becomes though not to the extent of
agitation or irritability., lithium level is coming down now at 1.2 creatinine remains elevated. discussed w patient and d restarting depakote for the reasons mentioned in yesteday's note. would start w a lower dose 250 mg bid and follow blood
level. level on admit negligible though he was said to be taking it (i think not). daughter interested in assessing the dementia gave her the name of two psychologists who do good neuro psych testing in [place] dr suni wheeler and dr curt dillon.
patient may need snf on dc. family would like him to go to [facility] [place] if needed. suggested to d that they might call [facility] for out pt followup if pcp cannot manage.
[2024-02-15 16:16] VITALS: BP 135/69
--- NOTE | 2024-02-15 17:09 | PTCARENOTE ---
Telephone order taken from Dr Wills for neuro checks to be changed from Q4 to Q12.
[2024-02-15 17:23] LABS: Glucose - Point of Care 229 mg/dl (70-99)
[2024-02-15] MEDS: CRESTOR 10 MG PO (17:29)
[2024-02-15] MEDS: NOVOLOG FLEXPEN-LOW RESISTANCE 2 UNITS SC (17:30)
--- NOTE | 2024-02-15 19:08 | W.PN.HOSP.TC ---
Today's Communication/Plan
-
SNF placement pending
Tyhee toxicity may take time to improve
Assessment / Plan
Assessment / Plan
Physical Exam
General: Not in acute distress, hard of hearing
HEENT: Normocephalic
Respiratory: Clear to Auscultation Bilaterally
Cardiac: S1/S2 and Regular Rhythm
GI: Soft, Non Tender, Non Distended and Normal Bowel Sounds
Musculoskeletal: No Cyanosis and Other (2+ pitting edema b/l LEs.)
Neuro: Awake, Alert. Not fully oriented. Cranial Nerves 2 through 12 grossly intact. Finger to nose intact (but tremors present). Strength and sensation grossly intact bilaterally.

ECHOCARDIOGRAM RESULTS PER PRETZEL TWISTING MACHINE OPERATOR'S REPORT:
CONCLUSIONS
Mild concentric left ventricular hypertrophy.
Normal left ventricular chamber size.
Normal left ventricular systolic function.
Normal regional wall motion.
Left ventricular ejection fraction is 55-60% by visual assessment.
Normal diastolic function.
Mild mitral regurgitation.
Mild aortic regurgitation.
Mild tricuspid regurgitation.
Estimated pulmonary artery pressure of 49 mmHg, assuming a right atrial
pressure of 3 mmHg.
Trivial to small pericardial effusion seen in the anterior space (1.5cm ) and
a smaller area along the left heart.
The IVC is of normal size and demonstrates normal respiratory variation.
Dilated aortic root.
COmpared to 2018 echocardiogram aortic root is of similar size

Assessment/Plan
Patient is an 89y M with PMH significant for ASCVD, CKD and DM-II who presents to ED for evaluation of recent increase in weakness, confusion, etc.
Weakness, Gait Dysfunction, and Confusion likely the combination of lithium and valproic acid on top of CKD in an elderly patient, possibly peripheral neuropathy from past alcohol use
- Spoke with patient's both daughters on February 13, 2024 -- they noted that at baseline, patient is very oriented and functional
- Tyhee likely the reason for patient's symptoms
- No evidence of pneumonia, UTI
- Patient is on potentially toxic medications - VPA and lithium - VPA levels low while Tyhee high -- patient should not be taking Tyhee anymore given age and CKD
and repeat level of 1.2 is still too high for him
- Patient restarted on a lower dose of Divalproex -- as he needs it for his Bipolar Disorder
- Consulted Neurology, recommendations appreciated
- Consulted Psychiatry, recommendations appreciated: Valproic Acid and Tyhee stopped, but then Valproic acid restarted at lower than home dose
- PT / OT evaluations.
- Follow for any new / focal complaints or concerns.
- Brain MRI could not be done to incompatible pacemaker
- So repeated CT head with no concerning acute finding
- Routine EEG
- Check Vitamins B1 and B12
ASCVD
- Stable. No chest pain, dyspnea, etc.
- Continue current CV med regimen.
- Monitor on tele for any arrhythmia.
- Echo pending (was ordered given LE edema noted on exam)
Paroxysmal Atrial Fibrillation
- Stable. Continue current meds including amio, Eliquis, etc.
CKD III
- Stable. SCr ranges from 1.5 to 1.9 over the past several labs.
- Currently 1.7---->1.5
- Follow for any changes.
DM-II
- Apparently diet controlled as patient is on no current DM medications.
- Follow glucose and cover with SSI if needed.
- Update A1C 7.5
DVT Prophylaxis: SCDs
Code Status: Full
On February 15, 2024, I spoke extensively to patient's daughter inside the patient's room; all questions and concerns were answered to satisfaction.
Total time spent today on chart review, seeing and examining the patient, documentation, speaking extensively with patient's daughter and reviewing orders, was 60 minutes.
Anticipated Discharge: > 48 hours
Subjective/Interval History
-
Date of Service: February 15, 2024
Patient was seen and examined. He denied any new symptoms or complaints.
Objective Data
-
Labs:
Laboratory Results
02/15/24
07:23
WBC 6.2
Hgb 12.0 L
Hct 35.8 L
Plt Count 138
Sodium 138
Potassium 4.4
Chloride 108 H
Carbon Dioxide 22
BUN 18
Creatinine 1.5 H
Glucose 118 H
Calcium 9.8
Total Bilirubin 0.6
AST 20
ALT 11
Alkaline Phosphatase 61
Vital Signs:
Vital Signs
Temp Pulse Resp BP Pulse Ox
98.1 F 73 18 135/69 100
02/15/24 16:16 02/15/24 16:16 02/15/24 16:16 02/15/24 16:16 02/15/24 16:16
I&O
02/14/24 02/15/24 02/16/24
06:59 06:59 06:59
Intake Total 1770 / 1770 540 / 540 960 / 960
Output Total 2075 / 2075 950 / 950 550 / 550
Balance -305 / -305 -410 / -410 410 / 410
[2024-02-15 19:36] VITALS: BP 112/71; BP 123/68; BP 138/70; PULSE 73; PULSE 79; PULSE 82
[2024-02-15] MEDS: DEPAKOTE (12 HR RELEASE) 250 MG PO (20:03)
[2024-02-15 22:00] LABS: Glucose - Point of Care 170 mg/dl (70-99)
[2024-02-15 23:54] VITALS: BP 143/83
[2024-02-16] VITALS (7 sets, daily range): BP systolic 110–153; BP diastolic 53–90; PULSE 66–106; O2SAT 100; BMI 23.7
[2024-02-16] MEDS: SYNTHROID 25 MCG PO (05:18)
[2024-02-16 07:42] LABS: Glucose - Point of Care 156 mg/dl (70-99)
[2024-02-16 08:15] LABS: Hematocrit 36.4 % (39.0-52.0); Hemoglobin 12.1 g/dL (13.0-18.0); Mean Corp Hgb Conc. 33.2 g/dL (33.0-37.0); Mean Corpuscular Hgb 31.4 pg (27.0-31.0); Mean Corpuscular Volume 94.5 fL (80.0-94.0); Mean Platelet Volume 10.6 fL (7.4-10.4); Platelet Count 142 10^3/uL (130-400); Red Blood Cell Count 3.85 10^6/uL (4.70-6.10); Red Cell Dist. Width 13.2 % (11.5-14.5); White Blood Cell Count 6.6 10^3/uL (4.8-10.8)
--- NOTE | 2024-02-16 08:41 | W.PN.HOSP.TC ---
Addendum entered and electronically signed by Harley Fowler MD 02/16/24 18:35:
Correction--> No Mobitz type 1 or 1st degree AV Block. No b-sherman.
Original Note:
Today's Communication/Plan
-
PT OT.
Assessment / Plan
Assessment / Plan
Physical Exam:
General: Not in acute distress, hard of hearing
HEENT: Normocephalic
Respiratory: Clear to Auscultation Bilaterally
Cardiac: S1/S2 and Regular Rhythm
GI: Soft, Non Tender, Non Distended and Normal Bowel Sounds
Musculoskeletal: No Cyanosis and Other (2+ pitting edema b/l LEs.)
Neuro: Awake, Alert. Not fully oriented. Cranial Nerves 2 through 12 grossly intact. Finger to nose intact. Strength and sensation grossly intact bilaterally.
A/P:
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
-Albia levels trending down appropriately--> repeat in am
-Restarted on Valproic
-Cont PT OT
-CT head and EEG unremarkable (mri incompatible ppm)
-Appreciated neuro and psych eval
-Discussed with CM and plan SNF on Sunday the earliest.
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
-Reviewed telemetry with RN
-On low dose B-sherman
-Nurse discussed with cardiology today and ok to continue B-Sherman.
ASCVD
- Stable. No chest pain, dyspnea, etc.
- Continue current CV med regimen.
- Monitor on tele for any arrhythmia.
- Echo (was ordered given LE edema noted on exam)--> nomal EF and mild valvulopathy and increased R side pressures.
Paroxysmal Atrial Fibrillation
- Stable. Continue current meds including amio, Eliquis, etc.
CKD III
- Stable. SCr ranges from 1.5 to 1.9 over the past several labs.
- Currently 1.6
- Follow for any changes.
DM-II
- Apparently diet controlled as patient is on no current DM medications.
- Follow glucose and cover with SSI if needed.
- Update A1C 7.5
DVT Prophylaxis: SCDs
Code Status: Full
Anticipated Discharge: > 48 hours
Subjective/Interval History
-
Date of Service: February 16, 2024
No new complaints. Reviewed telemetry-1st degree av block and Mobitz 1.
Objective Data
-
Labs:
Laboratory Results
02/16/24
07:08
WBC 6.6
Hgb 12.1 L
Hct 36.4 L
Plt Count 142
Sodium Pending
Potassium Pending
Chloride Pending
Carbon Dioxide Pending
BUN Pending
Creatinine Pending
Glucose Pending
Calcium Pending
Total Bilirubin Pending
AST Pending
ALT Pending
Alkaline Phosphatase Pending
Vital Signs:
Vital Signs
Temp Pulse Resp BP Pulse Ox
97.8 F 70 16 153/87 100
02/16/24 07:28 02/16/24 07:28 02/16/24 07:28 02/16/24 07:28 02/16/24 07:28
I&O
02/15/24 02/16/24 02/17/24
06:59 06:59 06:59
Intake Total 540 / 540 960 / 960
Output Total 950 / 950 1500 / 1500
Balance -410 / -410 -540 / -540
[2024-02-16 08:42] LABS: ALT (SGPT) 10 U/L (0-50); AST (SGOT) 19 U/L (17-59); Albumin 3.7 g/dl (3.5-5.0); Alkaline Phosphatase 60 U/L (38-126); Blood Urea Nitrogen 18 mg/dl (9-20); Calcium 9.9 mg/dl (8.4-10.2); Carbon Dioxide 27 mmol/L (22-30); Chloride 103 mmol/L (98-107); Estimated Creatinine Clearance 31 ml/min; Glucose 137 mg/dl (70-99); Potassium 4.5 mmol/L (3.5-5.1); Sodium 138 mmol/L (135-145); Total Bilirubin 0.5 mg/dl (0.2-1.3); Total Protein 6.1 g/dl (6.3-8.2); eGFR 40.93
[2024-02-16] MEDS: DEPAKOTE (12 HR RELEASE) 250 MG PO ×2 (09:07→20:33)
[2024-02-16] MEDS: ASPIR LOW (ENTERIC COATED) 81 MG PO (09:07)
[2024-02-16] MEDS: VITAMIN D3 (cholecalciferol) 25 MCG PO (09:08)
[2024-02-16] MEDS: ELIQUIS 2.5 MG PO ×2 (09:08→20:33)
[2024-02-16] MEDS: VESICARE 10 MG PO (09:08)
[2024-02-16] MEDS: PACERONE 200 MG PO (09:08)
[2024-02-16] MEDS: FLUSH (NSS) 1 FLUSH IV (09:08)
[2024-02-16] MEDS: NOVOLOG FLEXPEN-LOW RESISTANCE 1 UNITS SC (09:27)
[2024-02-16 11:52] LABS: Glucose - Point of Care 270 mg/dl (70-99)
[2024-02-16] MEDS: REFRESH EYE DROPS (PF) 1 DROPS OPHTH ×3 (13:20→20:47)
[2024-02-16] MEDS: NOVOLOG FLEXPEN-LOW RESISTANCE 3 UNITS SC (13:20)
--- NOTE | 2024-02-16 15:34 | CHAP ---
A visit had been requested for Mr. Gottlieb. His daughters were lovingly supporting him with their presence when this business employment specialist came. Mr. Gottlieb shared that he is devoted to his jainism - very much wants to receive Eucharist. Assured him that
Eucharistic ministers would be so advised, when they come.
[2024-02-16] MEDS: SENOKOT-S 1 TABLET PO (16:41)
[2024-02-16 16:42] LABS: Glucose - Point of Care 223 mg/dl (70-99)
[2024-02-16] MEDS: NOVOLOG FLEXPEN-LOW RESISTANCE 2 UNITS SC (17:30)
[2024-02-16] MEDS: CRESTOR 10 MG PO (17:31)
[2024-02-16 21:41] LABS: Glucose - Point of Care 175 mg/dl (70-99)
[2024-02-17] MEDS: SYNTHROID 25 MCG PO (05:01)
[2024-02-17 06:00] VITALS: BMI 23.6
[2024-02-17 06:37] LABS: Blood Urea Nitrogen 19 mg/dl (9-20); Calcium 9.5 mg/dl (8.4-10.2); Carbon Dioxide 27 mmol/L (22-30); Chloride 106 mmol/L (98-107); Estimated Creatinine Clearance 31 ml/min; Glucose 141 mg/dl (70-99); Lithium 0.7 mmol/L (0.6-1.2); Potassium 4.6 mmol/L (3.5-5.1); Sodium 137 mmol/L (135-145); eGFR 40.93
[2024-02-17 07:24] LABS: Glucose - Point of Care 136 mg/dl (70-99)
[2024-02-17 07:25] VITALS: BP 147/76
[2024-02-17 08:02] VITALS: BP 134/83; BP 140/80; BP 147/76; PULSE 71; PULSE 80; PULSE 84
[2024-02-17] MEDS: NOVOLOG FLEXPEN-LOW RESISTANCE SC (08:13)
[2024-02-17] MEDS: DEPAKOTE (12 HR RELEASE) 250 MG PO ×2 (09:09→20:17)
[2024-02-17] MEDS: VESICARE 10 MG PO (09:10)
[2024-02-17] MEDS: PACERONE 200 MG PO (09:10)
[2024-02-17] MEDS: ASPIR LOW (ENTERIC COATED) 81 MG PO (09:10)
[2024-02-17] MEDS: ELIQUIS 2.5 MG PO ×2 (09:13→20:17)
[2024-02-17] MEDS: VITAMIN D3 (cholecalciferol) 25 MCG PO (09:13)
[2024-02-17] MEDS: REFRESH EYE DROPS (PF) 1 DROPS OPHTH ×4 (09:13→21:20)
[2024-02-17 11:06] LABS: Hematocrit 38.1 % (39.0-52.0); Hemoglobin 12.4 g/dL (13.0-18.0); Mean Corp Hgb Conc. 32.5 g/dL (33.0-37.0); Mean Corpuscular Hgb 31.6 pg (27.0-31.0); Mean Corpuscular Volume 97.2 fL (80.0-94.0); Mean Platelet Volume 10.1 fL (7.4-10.4); Platelet Count 144 10^3/uL (130-400); Red Blood Cell Count 3.92 10^6/uL (4.70-6.10); Red Cell Dist. Width 13.3 % (11.5-14.5); White Blood Cell Count 6.7 10^3/uL (4.8-10.8)
[2024-02-17 11:42] LABS: Glucose - Point of Care 178 mg/dl (70-99)
--- NOTE | 2024-02-17 12:19 | W.PN.UPDATE ---
Update Note
Progress Note Update
Psychiatry follow up for lithium toxicity/confusion (history of bipolar disorder and alcohol use disorder in remission 20 years). [place] level today 0.7 from 1.9 on 02/12/24. VPA on 02/11 was <10. Depakote 250mg BID was started on 02/14.
Patient is sitting up in chair reading at this time. He is cooperative and pleasant. He reports feeling well today. No irritability or agitation. Talked to me about his daughter, children, grandchildren etc.
A/P- 89 yo male with history of bipolar disorder and alcohol use disorder in remission. Continue Depakote 250mg BID. Check level this week. Psychiatry will follow up.
[2024-02-17] MEDS: NOVOLOG FLEXPEN-LOW RESISTANCE 1 UNITS SC ×2 (13:02→17:48)
[2024-02-17 15:08] VITALS: BP 120/69
--- NOTE | 2024-02-17 16:04 | CM ---
CM updated [facility] via all script about insurance, and VM left for patient daughter about alternative choices. IF patient accepted at [facility] he will need auth. CM will continue to follow for discharge planning needs.
Plan; SNF: will need auth; awaiting availability at [facility]
[2024-02-17 16:32] LABS: Glucose - Point of Care 182 mg/dl (70-99)
[2024-02-17] MEDS: CRESTOR 10 MG PO (17:48)
--- NOTE | 2024-02-17 19:15 | W.PN.HOSP.TC ---
Today's Communication/Plan
-
Hopefully can discharge to SNF tomorrow
Appreciate Psychiatry
Assessment / Plan
Assessment / Plan
Physical Exam
General: Not in acute distress, hard of hearing
HEENT: Normocephalic
Respiratory: Clear to Auscultation Bilaterally
Cardiac: S1/S2 and Regular Rhythm
GI: Soft, Non Tender, Non Distended and Normal Bowel Sounds
Musculoskeletal: No Cyanosis and Other (2+ pitting edema b/l LEs.)
Neuro: Awake, Alert. Spontaneously moving all extremities and able to understand and elaborate speech.
A/P
Toxic Metabolic encephalopathy due to [place]/Valproic toxicity:
-[place] levels trending down appropriately--> repeat in am
-Restarted on Valproic --> levels will need to be checked this week outpatient vs. inpatient
-Cont PT OT
-CT head and EEG unremarkable (mri incompatible ppm)
-Appreciated neuro and psych eval
-Hospitalist team discussed with case management and plan SNF on Sunday the earliest.
ASCVD
- Stable. No chest pain, dyspnea, etc.
- Continue current CV med regimen.
- Monitor on tele for any arrhythmia.
- Echo (was ordered given LE edema noted on exam)--> nomal EF and mild valvulopathy and increased R side pressures.
Paroxysmal Atrial Fibrillation
- Stable. Continue current meds including amio, Eliquis, etc.
CKD III
- Stable. SCr ranges from 1.5 to 1.9 over the past several labs.
- Currently 1.6
- Follow for any changes.
DM-II
- Apparently diet controlled as patient is on no current DM medications.
- Follow glucose and cover with SSI if needed.
- Updated A1C 7.5
DVT Prophylaxis: SCDs
Code Status: Full
Anticipated Discharge: 24 - 48 hours
Subjective/Interval History
-
Date of Service: February 17, 2024
Patient was seen and examined. No new symptoms/events/complaints reported.
Objective Data
-
Labs:
Laboratory Results
02/17/24
10:45
WBC 6.7
Hgb 12.4 L
Hct 38.1 L
Plt Count 144
Vital Signs:
Vital Signs
Temp Pulse Resp BP Pulse Ox
97.9 F 66 16 120/69 98
02/17/24 15:08 02/17/24 15:08 02/17/24 15:08 02/17/24 15:08 02/17/24 15:08
I&O
02/16/24 02/17/24 02/18/24
06:59 06:59 06:59
Intake Total 960 / 960 480 / 480 480 / 480
Output Total 1500 / 1500
Balance -540 / -540 480 / 480 480 / 480
[2024-02-17 21:24] LABS: Glucose - Point of Care 146 mg/dl (70-99)
[2024-02-17 23:55] VITALS: BP 129/78; BP 148/93; BP 149/99; PULSE 78; PULSE 84; PULSE 85
[2024-02-18] MEDS: SYNTHROID 25 MCG PO (05:01)
[2024-02-18 06:00] VITALS: BMI 23.3
[2024-02-18 07:27] LABS: Glucose - Point of Care 146 mg/dl (70-99)
[2024-02-18 07:35] VITALS: BP 155/99
[2024-02-18] MEDS: NOVOLOG FLEXPEN-LOW RESISTANCE SC (08:38)
[2024-02-18] MEDS: VITAMIN D3 (cholecalciferol) 25 MCG PO (08:39)
[2024-02-18] MEDS: ASPIR LOW (ENTERIC COATED) 81 MG PO (08:39)
[2024-02-18] MEDS: ELIQUIS 2.5 MG PO ×2 (08:39→20:24)
[2024-02-18] MEDS: DEPAKOTE (12 HR RELEASE) 250 MG PO ×2 (08:39→20:24)
[2024-02-18] MEDS: REFRESH EYE DROPS (PF) 1 DROPS OPHTH ×4 (08:39→22:32)
[2024-02-18] MEDS: PACERONE 200 MG PO (08:39)
[2024-02-18] MEDS: VESICARE 10 MG PO (08:39)
[2024-02-18] MEDS: FLUSH (NSS) 1 FLUSH IV (08:40)
--- NOTE | 2024-02-18 09:06 | W.PN.HOSP.TC ---
Today's Communication/Plan
-
Discharge planning
Assessment / Plan
Assessment / Plan
Gen-AAOx3, NAD
HEENT-NC, AT, anicteric, clear oral mm
Neck-supple
CV-reg, no M, +S1/S2
Lungs-clear B/L
Abd-soft, NT, ND
Ext-no edema
Musculoskeletal-no cyanosis, clubbing
Skin-warm and dry
Neuro-grossly non-focal
Psych-calm, cooperative
Acute toxic Metabolic encephalopathy - due to [place]/Valproic toxicity:
-[place] levels trending down appropriately--> repeat in am
-Restarted on Valproic --> levels will need to be checked this week outpatient vs. inpatient
-Cont PT OT
-CT head and EEG unremarkable (mri incompatible ppm)
-Appreciated neuro and psych eval
CAD
- Stable. No chest pain, dyspnea, etc.
- Continue current CV med regimen.
- Monitor on tele for any arrhythmia.
- Echo (was ordered given LE edema noted on exam)--> nomal EF and mild valvulopathy and increased R side pressures.
Paroxysmal Atrial Fibrillation
- Stable. Continue current meds including amio, Eliquis, etc.
CKD III
- Stable. SCr ranges from 1.5 to 1.9 over the past several labs.
- Currently 1.6, stable.
- Follow for any changes.
DM2 without hyperglycemia -glucose 146 this morning.
- Apparently diet controlled as patient is on no current DM medications.
- Follow glucose and cover with SSI if needed.
- Updated A1C 7.5
DVT Prophylaxis: SCDs
Code Status: Full
Dispo -medically stable for discharge to SNF. Case management aware.
Anticipated Discharge: Today
Subjective/Interval History
-
Date of Service: February 18, 2024
Patient seen and examined. Eating breakfast. No complaints.
Objective Data
-
Vital Signs:
Vital Signs
Temp Pulse Resp BP Pulse Ox
98.2 F 72 18 155/99 100
02/18/24 07:35 02/18/24 08:39 02/18/24 07:35 02/18/24 08:39 02/18/24 08:37
I&O
02/17/24 02/18/24 02/19/24
06:59 06:59 06:59
Intake Total 480 / 480 600 / 600
Balance 480 / 480 600 / 600
Review of Systems
-
History Source: Patient
All other systems: Reviewed and negative
[2024-02-18 09:55] VITALS: BP 126/76; BP 126/95; BP 135/66; PULSE 68; PULSE 73; PULSE 76
[2024-02-18 10:11] VITALS: BP 126/65; PULSE 76
[2024-02-18 10:25] VITALS: BP 140/73; PULSE 72; O2SAT 100
[2024-02-18 10:52] VITALS: BMI 23.3
[2024-02-18 11:48] LABS: Glucose - Point of Care 263 mg/dl (70-99)
[2024-02-18] MEDS: NOVOLOG FLEXPEN-LOW RESISTANCE 3 UNITS SC (13:19)
[2024-02-18 15:21] VITALS: BP 113/64
--- NOTE | 2024-02-18 15:25 | CM ---
CM reviewed pt with Dr Hernandes and pt ready for dc
CM spoke with dtr and advised both [facility] and [facility] have offered bed
Dtr selected [facility] auth initiated [phone] option 3
Clinicals faxed to [phone]
Dtr/Francia requested other dtr/Annalise be contact for dc planning
Discharge Disposition- anticipate [facility] tomorrow pending [facility] auth
[2024-02-18 16:41] LABS: Glucose - Point of Care 203 mg/dl (70-99)
--- NOTE | 2024-02-18 16:42 | PTCARENOTE ---
Pt awake and alert, oriented to self/place; occ confused to date. Pt very forgetful; [employer]. MARTINEZ; OOB to chair with assist x1, ronaldo well. VSS. On room air- pulse ox 100%, no SOB noted. Abd large, soft, ronaldo O; appetite good. Incont urine; does not
want to use condom cath at this time. Resting in chair at present, no c/o. Will continue to monitor.
[2024-02-18] MEDS: CRESTOR 10 MG PO (17:29)
[2024-02-18] MEDS: NOVOLOG FLEXPEN-LOW RESISTANCE 2 UNITS SC (17:30)
[2024-02-18 21:59] LABS: Glucose - Point of Care 138 mg/dl (70-99)
[2024-02-18 23:55] VITALS: BP 156/85
[2024-02-19] MEDS: SYNTHROID 25 MCG PO (04:49)
[2024-02-19 06:00] VITALS: BMI 23.3
[2024-02-19 07:20] VITALS: BP 124/60; BP 125/69; BP 136/80; PULSE 78; PULSE 80; PULSE 84
--- NOTE | 2024-02-19 08:57 | W.PN.HOSP.TC ---
Today's Communication/Plan
-
Discharge planning
Assessment / Plan
Assessment / Plan
Gen-AAOx3, NAD
HEENT-NC, AT, anicteric, clear oral mm
Neck-supple
CV-reg, no M, +S1/S2
Lungs-clear B/L
Abd-soft, NT, ND
Ext-no edema
Musculoskeletal-no cyanosis, clubbing
Skin-warm and dry
Neuro-grossly non-focal
Psych-calm, cooperative
Acute toxic Metabolic encephalopathy - due to [place]/Valproic toxicity:
-[place] levels trending down appropriately--> repeat in am
-Restarted on Valproic --> levels will need to be checked this week outpatient vs. inpatient
-Cont PT OT
-CT head and EEG unremarkable (mri incompatible ppm)
-Appreciated neuro and psych eval
CAD
- Stable. No chest pain, dyspnea, etc.
- Continue current CV med regimen.
- Monitor on tele for any arrhythmia.
- Echo (was ordered given LE edema noted on exam)--> nomal EF and mild valvulopathy and increased R side pressures.
Paroxysmal Atrial Fibrillation
- Stable. Continue current meds including amio, Eliquis, etc.
CKD III
- Stable. SCr ranges from 1.5 to 1.9 over the past several labs.
- Currently 1.6, stable.
- Follow for any changes.
DM2 without hyperglycemia -glucose not recorded this morning.
- Apparently diet controlled as patient is on no current DM medications.
- Follow glucose and cover with SSI if needed.
- Updated A1C 7.5
DVT Prophylaxis: SCDs
Code Status: Full
Dispo -medically stable for discharge to SNF. Case management aware.
Anticipated Discharge: Today
Subjective/Interval History
-
Date of Service: February 19, 2024
Patient seen and examined. Eating breakfast. No complaints.
Objective Data
-
Vital Signs:
Vital Signs
Temp Pulse Resp BP Pulse Ox
97.9 F 78 18 136/80 97
02/19/24 07:20 02/19/24 07:20 02/19/24 07:20 02/19/24 07:20 02/19/24 07:20
I&O
02/18/24 02/19/24 02/20/24
06:59 06:59 06:59
Intake Total 600 / 600 990 / 990
Balance 600 / 600 990 / 990
Review of Systems
-
History Source: Patient
All other systems: Reviewed and negative
[2024-02-19 09:24] LABS: Glucose - Point of Care 154 mg/dl (70-99)
[2024-02-19] MEDS: PACERONE 200 MG PO (09:24)
[2024-02-19] MEDS: ASPIR LOW (ENTERIC COATED) 81 MG PO (09:24)
[2024-02-19] MEDS: VESICARE 10 MG PO (09:25)
[2024-02-19] MEDS: NOVOLOG FLEXPEN-LOW RESISTANCE 1 UNITS SC ×2 (09:26→12:20)
[2024-02-19] MEDS: REFRESH EYE DROPS (PF) 1 DROPS OPHTH (09:28)
[2024-02-19] MEDS: DEPAKOTE (12 HR RELEASE) 250 MG PO (09:28)
[2024-02-19] MEDS: ELIQUIS 2.5 MG PO (09:28)
[2024-02-19] MEDS: VITAMIN D3 (cholecalciferol) 25 MCG PO (09:29)
--- NOTE | 2024-02-19 09:53 | W.DS.TRANS ---
DC Summary - Public Opinion Survey Taker
-
Discharge Instructions:
Sleep Apnea Risk Intermediate
Discharge Diagnosis/Procedures [place] toxicity, gait dysfunction
Diet Regular
Activity With assistance,As tolerated
Driving Restrictions No driving
Bathing Restrictions None
Instructions:
Stand-Alone Forms:
Changes to Home Medications: Yes
Discharge Medications:
DC Medications w/original date entered in [employer]
aspirin 81 mg tablet,delayed release 81 mg PO DAILY Blood clot prevention/tx 12/16/14
multivitamin with folic acid 400 mcg tablet (Tab-A-Mariaelena) 1 tab PO MOWEFR Supplement 12/16/14
amiodarone 200 mg tablet (Pacerone) 200 mg PO DAILY Arrhythmia 02/22/16
apixaban 2.5 mg tablet (Eliquis) 2.5 mg PO BID ##30 02/25/16
sennosides 8.6 mg tablet (senna) 1 tab PO HS PRN Constipation 02/28/22
cholecalciferol (vitamin D3) 25 mcg (1,000 unit) capsule 25 mcg PO DAILY Supplement 05/09/22
levothyroxine 25 mcg tablet 25 mcg PO DAILY AT 0700 Thyroid 05/09/22
solifenacin 10 mg tablet 10 mg PO DAILY Urinary issue 05/09/22
rosuvastatin 10 mg tablet 10 mg PO QPM hyperlipidemia #1 tab 05/15/22
polyvinyl alcohol-povidone (PF) 1.4 %-0.6 % eye drops in a dropperette (Refresh Classic (PF)) 1 drops BOTH EYES QIDPRN PRN dry eyes 02/12/24
bisacodyl 10 mg rectal suppository 10 mg OR DAILYPRN PRN constipation #0 ea 02/18/24
divalproex 250 mg tablet,delayed release 250 mg PO BID #0 tabs 02/18/24
polyethylene glycol 3350 17 gram oral powder packet (HealthyLax) 17 g PO DAILYPRN PRN constipation #0 ea 02/18/24
Home Medication Changes
Stop lithium
Pending Results: No
--- NOTE | 2024-02-19 10:23 | CM ---
Addendum entered by Lindsey Hampton 02/19/24 10:45:
Acute Care pickup 1230
Original Note:
CM reviewed pt with Dr Hernandes and pt remains medically ready for dc
[facility] auth obtained for [facility]
Call with dtr/Annalise with update
IMM verbally reviewed over phone- copy left bedside for her visit later in day
Bedside visit with pt with update
Medical necessity and transport form on chart
[facility] to arrange for ambulance transport
[facility] auth Ref#[id number] level I
3 days 02/18-02/20 ([facility])
Susi Esposito f- [phone]
Discharge Disposition- [facility] via ambulance
Phone- [phone] Fax- [phone]
[2024-02-19 11:44] LABS: Glucose - Point of Care 152 mg/dl (70-99)
[2024-02-19 11:53] VITALS: BP 131/85
== END 2024-02-19 13:31 | DRG 93 ==
LOC: 4 EAST ACU 18:52
PROVIDERS: Emergency Medicine; Hospitalist; ADMITTING PHYSICIAN Hospitalist; ATTENDING PHYSICIAN Hospitalist; CONSULT PHYSICIAN Psychiatry & Neurology Psychiatry; CONSULT PHYSICIAN Student in an Organized Health Care Education/Training Program; EMERGENCY PHYSICIAN Emergency Medicine; FAMILY PHYSICIAN Internal Medicine
DX: G92.8 Other toxic encephalopathy (principal); Z11.52 Encounter for screening for COVID-19; I25.10 Atherosclerotic heart disease of native coronary artery without angina pectoris; I48.0 Paroxysmal atrial fibrillation; N18.32 Chronic kidney disease, stage 3b; E11.22 Type 2 diabetes mellitus with diabetic chronic kidney disease; Z95.5 Presence of coronary angioplasty implant and graft; Z79.01 Long term (current) use of anticoagulants; I34.81 Nonrheumatic mitral (valve) annulus calcification; T56.891A Toxic effect of other metals, accidental (unintentional), initial encounter
CPT/HCPCS: 70450; 71046; 80048; 80053; 80164; 80178; 81003; 82077; 82140; 82565; 82962; 83036; 84443; 84484; 84520; 85025; 85027; 85610; 85730; 87502; 87811; 93005; 93306; 95816; 96360; 97116; 97162; 97166; 97530; 97535; 99285

== ENCOUNTER → 2024-02-22 10:15 | Outpatient (REF) | payer OTHER, MEDICARE, SELFPAY ==
[2024-02-22 11:52] LABS: % Basophils 0.8 % (0-2); % Eosinophils 3.5 % (0-6); % Immature Granulocytes 0.2 % (0-0.5); % Lymphocytes 25.8 % (20.5-51.1); % Monocytes 6.8 % (1.7-9.3); % Neutrophils 62.9 % (42.2-75.2); Absolute Eosinophils 0.2 10^3/uL (0-0.7); Absolute Lymphocytes 1.3 10^3/uL (1.2-3.4); Absolute Monocytes 0.3 10^3/uL (0.1-0.6); Mean Corp Hgb Conc. 33.3 g/dL (33.0-37.0); Mean Corpuscular Hgb 31.4 pg (27.0-31.0); Mean Corpuscular Volume 94.2 fL (80.0-94.0); Mean Platelet Volume 10.5 fL (7.4-10.4); Nucleated Red Blood Cells % 0 % (-); Platelet Count 138 10^3/uL (130-400); Red Blood Cell Count 3.82 10^6/uL (4.70-6.10); Red Cell Dist. Width 13.3 % (11.5-14.5); White Blood Cell Count 4.8 10^3/uL (4.8-10.8)
[2024-02-22 11:56] LABS: Blood Urea Nitrogen 21 mg/dl (9-20); Calcium 9.1 mg/dl (8.4-10.2); Carbon Dioxide 25 mmol/L (22-30); Chloride 106 mmol/L (98-107); Glucose 143 mg/dl (70-99); Potassium 4.2 mmol/L (3.5-5.1); Sodium 136 mmol/L (135-145); eGFR 40.93
[2024-02-22 12:05] LABS: Depakane 37.2 ug/ml (50.0-120.0)
== END ==
LOC: OLABP 10:15
PROVIDERS: ATTENDING PHYSICIAN Family Medicine
DX: G92.8 Other toxic encephalopathy (principal); R79.9 Abnormal finding of blood chemistry, unspecified; M62.81 Muscle weakness (generalized); I25.10 Atherosclerotic heart disease of native coronary artery without angina pectoris; I48.0 Paroxysmal atrial fibrillation; N18.30 Chronic kidney disease, stage 3 unspecified; E11.21 Type 2 diabetes mellitus with diabetic nephropathy; E11.65 Type 2 diabetes mellitus with hyperglycemia; Z86.73 Personal history of transient ischemic attack (TIA), and cerebral infarction without residual deficits
CPT/HCPCS: 36415; 80048; 80164; 85025

== ENCOUNTER → 2024-02-25 11:57 | Outpatient (REF) | payer OTHER, MEDICARE, SELFPAY ==
[2024-02-25 13:13] LABS: % Basophils 0.6 % (0-2); % Eosinophils 3.2 % (0-6); % Immature Granulocytes 0.2 % (0-0.5); % Lymphocytes 30.5 % (20.5-51.1); % Monocytes 7.6 % (1.7-9.3); % Neutrophils 57.9 % (42.2-75.2); Absolute Eosinophils 0.2 10^3/uL (0-0.7); Absolute Lymphocytes 1.4 10^3/uL (1.2-3.4); Absolute Monocytes 0.4 10^3/uL (0.1-0.6); Absolute Neutrophils 2.7 10^3/uL (1.4-6.5); Hemoglobin 11.7 g/dL (13.0-18.0); Mean Corp Hgb Conc. 33.4 g/dL (33.0-37.0); Mean Corpuscular Hgb 31.8 pg (27.0-31.0); Mean Corpuscular Volume 95.1 fL (80.0-94.0); Nucleated Red Blood Cells % 0 % (-); Platelet Count 126 10^3/uL (130-400); Red Blood Cell Count 3.68 10^6/uL (4.70-6.10); Red Cell Dist. Width 13.2 % (11.5-14.5); White Blood Cell Count 4.6 10^3/uL (4.8-10.8)
[2024-02-25 13:53] LABS: Depakane 33.7 ug/ml (50.0-120.0)
[2024-02-25 13:59] LABS: Blood Urea Nitrogen 21 mg/dl (9-20); Calcium 9.4 mg/dl (8.4-10.2); Carbon Dioxide 24 mmol/L (22-30); Chloride 107 mmol/L (98-107); Glucose 149 mg/dl (70-99); Potassium 4.3 mmol/L (3.5-5.1); Sodium 137 mmol/L (135-145); eGFR 40.93
== END ==
LOC: OLABP 11:57
PROVIDERS: ATTENDING PHYSICIAN Family Medicine
DX: G92.8 Other toxic encephalopathy (principal); R79.9 Abnormal finding of blood chemistry, unspecified; M62.81 Muscle weakness (generalized); I25.10 Atherosclerotic heart disease of native coronary artery without angina pectoris; I48.0 Paroxysmal atrial fibrillation; N18.30 Chronic kidney disease, stage 3 unspecified; E11.21 Type 2 diabetes mellitus with diabetic nephropathy; E11.65 Type 2 diabetes mellitus with hyperglycemia
CPT/HCPCS: 36415; 80048; 80164; 85025